=== PATIENT | female | born 1960 | race Caucasian/White ===

== ENCOUNTER 2017-10-28 12:23 | Outpatient (CLI) ==
--- NOTE | 2017-10-28 13:52 | DI ---
EXAM: Three views of the lumbar spine. History: Lower back pain. Findings: Atherosclerotic vascular calcifications. No acute fracture or subluxation of the lumbar s pine. Grossly intact posterior fusion hardware from L3-S1. Impression: No acute osseous abnormality.
== END 2017-10-28 12:24 | disposition home or self-care (01) ==
LOC: RAD 12:23
PROVIDERS: ATTEND Nurse Practitioner Family
DX: M54.5 Low back pain (principal)